=== PATIENT | female | born 1945 | race Caucasian/White ===

== ENCOUNTER 2020-01-07 16:37 | Emergency (ER) | payer MEDICARE, OTHER ==
[2020-01-07] MEDS ORDERED: amLODIPine 5 MG Tab PO ONE (17:09)
--- NOTE | 2020-01-07 17:11 | EDM.PDOC ---
ED HPI GENERAL MEDICAL PROBLEM - General Chief Complaint: General Stated Complaint: WEAK,HIGH BP Time Seen by Provider: 01/07/20 16:55 Source of Information: Reports: Patient, Old Records, RN History Limitations: Reports: No Limitations - History of Present Illness INITIAL COMMENTS - FREE TEXT/NARRATIVE: 74 yo female on multiple medications for HTN decided on her own to stop most of them about a month ago. She never checked her BP after this until today in the clinic. When they discovered her BP was over 200 they referred her to the ER. She denies feeling any different than usual except that her says she has no ambition for about a week. 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: Other (see below) (none) Headache Pain Score (Numeric/FACES): 3 - Related Data Allergies Allergy/AdvReac Type Severity Reaction Status Date / Time hydrochlorothiazide Allergy Cannot Verified 03/16/18 23:43 Remember sulfadiazine [Sulfadiazine] Allergy Hives Verified 03/16/18 23:43 amoxicillin [Amoxicillin] AdvReac Nausea Verified 03/16/18 23:43 cephalexin [Cephalexin] AdvReac Nausea Verified 03/16/18 23:43 ciprofloxacin AdvReac Nausea Verified 03/16/18 23:43 ketorolac AdvReac Stomach Verified 03/16/18 23:43 Upset levofloxacin [From Levaquin] AdvReac Nausea Verified 03/16/18 23:43 lorazepam [From Ativan] AdvReac Nausea Verified 03/16/18 23:43 metronidazole AdvReac Nausea Verified 03/16/18 23:43 Penicillins AdvReac Fainting Verified 03/16/18 23:43 Home Meds: Home Meds Acetaminophen [Mapap] 500 mg PO Q6H PRN 10/09/13 [History] Fluticasone Propionate [Flonase] 2 sprays NS DAILY 10/09/13 [History] Levothyroxine [Sythroid] 137 mcg PO DAILY 10/09/13 [History] Metoprolol Succinate [Toprol XL 100mg] 100 mg PO DAILY 10/09/13 [History] Multivitamin [Multi Vitamin Daily] 1 each PO DAILY 10/09/13 [History] Temazepam [Restoril] 15 mg PO BEDTIME PRN 10/09/13 [History] fentaNYL [Duragesic] 1 patch TD Q72H 10/09/13 [History] traMADol [Ultram] 50 mg PO Q6H PRN 10/09/13 [History] Torsemide 10 mg PO DAILY 01/11/18 [History] amLODIPine Besylate [Amlodipine Besylate] 10 mg PO BID 01/11/18 [History] atorvaSTATin [Lipitor] 10 mg PO DAILY 01/11/18 [History] tiZANidine [Zanaflex] 4 mg PO BEDTIME PRN 01/11/18 [History] Calcium Carbonate/Vitamin D3 [Calcium 500-Vit D3 600 Tablet] 1 tab PO BID 03/16/18 [History] Losartan Potassium 25 mg PO DAILY 05/08/19 [History] Past Medical History HEENT History: Reports: Cataract Cardiovascular History: Reports: High Cholesterol, Hypertension Genitourinary History: Reports: Chronic Renal Insuffiency, Renal Disease Other Genitourinary History: kidneys not functioniong well 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: Musculoskeletal History: Reports: Arthritis Neurological History: Reports: Other (See Below) Other Neuro History: spinal scoliosis Endocrine/Metabolic History: Reports: Hypothyroidism - Infectious Disease History Infectious Disease History: Reports: Chicken Pox, Measles, Mumps - Past Surgical History HEENT Surgical History: Reports: Cataract Surgery, LASIK GI Surgical History: Reports: Cholecystectomy, Colonoscopy Female Surgical History: Reports: Tubal Ligation Endocrine Surgical History: Reports: Thyroidectomy Musculoskeletal Surgical History: Reports: Knee Replacement Social & Family History - Family History Family Medical History: Noncontributory - Tobacco Use Smoking Status *Q: Never Smoker - Caffeine Use Caffeine Use: Reports: None Caffeine Use Comment: very rarely - Recreational Drug Use Recreational Drug Use: No ED ROS GENERAL - Review of Systems Review Of Systems: See Below Constitutional: Reports: No Symptoms HEENT: Reports: No Symptoms Respiratory: Reports: No Symptoms Endocrine: Reports: No Symptoms GI/Abdominal: Reports: No Symptoms : Reports: No Symptoms Musculoskeletal: Reports: Back Pain (chronic) Skin: Reports: No Symptoms Neurological: Reports: Headache (mild, chronic) ED EXAM, GENERAL - Physical Exam Exam: See Below Exam Limited By: No Limitations General Appearance: Alert, WD/WN, No Apparent Distress Eye Exam: Bilateral Eye: Normal Inspection Ears: Normal External Exam, Normal Canal, Hearing Grossly Normal, Normal TMs Ear Exam: Bilateral Ear: Auricle Normal, Canal Normal, TM normal Nose: Normal Inspection, No Blood Throat/Mouth: Normal Inspection Head: Atraumatic, Normocephalic Neck: Normal Inspection Respiratory/Chest: No Respiratory Distress, Lungs Clear, Normal Breath Sounds, No Accessory Muscle Use Cardiovascular: Regular Rate, Rhythm, No Edema GI/Abdominal: Normal Bowel Sounds, Soft, Non-Tender, No Distention Back Exam: Normal Inspection. No: CVA Tenderness (R), CVA Tenderness (L) Extremities: Normal Inspection, Normal Range of Motion, Non-Tender, No Pedal Edema Neurological: Alert, Oriented, CN II-XII Intact, Normal Cognition, Normal Reflexes, No Motor/Sensory Deficits Psychiatric: Normal Affect, Normal Mood Skin Exam: Warm, Dry, Intact, Normal Color, No Rash Course - Vital Signs Last Recorded V/S: Last Vital Signs Temp 36.6 C 01/07/20 16:52 Pulse 72 01/07/20 16:52 Resp 16 01/07/20 16:52 BP 228/102 H 01/07/20 16:52 Pulse Ox 97 01/07/20 16:52 - Orders/Labs/Meds Labs: Laboratory Tests 01/07/20 Range/Units 16:40 Sodium 141 (140-148) mmol/L Potassium 3.8 (3.6-5.2) mmol/L Chloride 103 (100-108) mmol/L Carbon Dioxide 30 (21-32) mmol/L Anion Gap 8.5 (5.0-14.0) mmol/L BUN 23 H (7-18) mg/dL Creatinine 1.9 H (0.6-1.0) mg/dL Est Cr Clr Drug Dosing 21.75 mL/min Estimated GFR (MDRD) 26 L (>60) Glucose 84 (74-106) mg/dL Calcium 9.5 (8.5-10.1) mg/dL Meds: Medications Discontinued Medications Generic Name Dose Route Start Last Admin Trade Name Freq PRN Reason Stop Dose Admin Amlodipine Besylate 10 mg 01/07/20 17:09 Norvasc PO 01/07/20 17:10 ONETIME ONE Departure - Departure Time of Disposition: 17:35 Disposition: Home, Self-Care 01 Condition: Fair Clinical Impression: Noncompliance with medication regimen HTN (hypertension) Qualifiers: Hypertension type: unspecified Qualified Code(s): I10 - Essential (primary) hypertension - Discharge Information *PRESCRIPTION DRUG MONITORING PROGRAM REVIEWED*: Not Applicable *COPY OF PRESCRIPTION DRUG MONITORING REPORT IN PATIENT BENNY: Not Applicable Referrals: Luis Valdes MD [Primary Care Provider] - Forms: ED Department Discharge Additional Instructions: Resume your medications as previously prescribed. Take your next dose of am lodipine in the morning tomorrow. If you find you are out of any of your BP meds then call your provider in the morning for refills. Recheck in the clinic within the week. Return here for shortness of breath, chest pain, stroke symptoms(unilateral numbness or weakness), worsening headache, or syncope. Avoid salt or salty foods. Avoid vigorous exercise until your BP is improving, you may go for walks at a nice slow pace. Sepsis Event Note (ED) - Focused Exam Vital Signs: Vital Signs Temp Pulse Resp BP Pulse Ox 01/07/20 16:52 36.6 C 72 16 228/102 H 97
== END 2020-01-07 17:51 | disposition home or self-care (01) ==
LOC: JP.ED 16:37
DX: I12.9 Hypertensive chronic kidney disease with stage 1 through stage 4 chronic kidney disease, or unspecified chronic kidney disease (principal); N18.9 Chronic kidney disease, unspecified; E78.00 Pure hypercholesterolemia, unspecified; E03.9 Hypothyroidism, unspecified; M19.90 Unspecified osteoarthritis, unspecified site; Z88.8 Allergy status to other drugs, medicaments and biological substances; Z79.899 Other long term (current) drug therapy; Z90.89 Acquired absence of other organs
CPT/HCPCS: 36415; 80048; 99283; A9270

== ENCOUNTER 2021-04-08 05:58 | Inpatient (IN) | payer MEDICARE, OTHER ==
[2021-04-08] MEDS ORDERED: Levothyroxine 112 MCG Tab PO ONE (06:54)
[2021-04-08 07:01] LABS: CORONAVIRUS COVID-19 NAA POSITIVE (NEGATIVE)
[2021-04-08] MEDS ORDERED: Dexamethasone 4 MG/ML SDV IVPUSH ONE (09:32)
[2021-04-08] MEDS ORDERED: Ondansetron 4 MG Tab.DIS PO PRN (10:07)
[2021-04-08] MEDS ORDERED: Ondansetron 4 MG/2 ML SDV IV PRN (10:07)
[2021-04-08] MEDS: Enoxaparin 30 MG/0.3 ML Syringe SUBCUT SCH (13:13)
[2021-04-08] MEDS: Melatonin 3 MG Tab PO SCH (22:31)
[2021-04-09] MEDS ORDERED: Levothyroxine 100 MCG Tab PO SCH (07:30)
[2021-04-09] MEDS: Dexamethasone 4 MG/ML SDV IVPUSH SCH (11:31)
[2021-04-09] MEDS: Potassium Chloride 20 MEQ Tab.ER PO SCH ×2 (11:31→20:25)
[2021-04-09] MEDS: Enoxaparin 30 MG/0.3 ML Syringe SUBCUT SCH (11:32)
[2021-04-09] MEDS: LORazepam 0.5 MG Tab PO PRN ×2 (18:23→23:51)
[2021-04-09] MEDS: Melatonin 3 MG Tab PO SCH (20:29)
[2021-04-09] MEDS: Haloperidol Lactate 5 MG/ML SDV IVPUSH PRN (22:28)
[2021-04-10] MEDS: LORazepam 0.5 MG Tab PO PRN ×2 (11:18→23:25)
[2021-04-10] MEDS: Dexamethasone 4 MG/ML SDV IVPUSH SCH (11:18)
[2021-04-10] MEDS: Enoxaparin 30 MG/0.3 ML Syringe SUBCUT SCH (11:18)
[2021-04-10] MEDS: Acetaminophen 325 MG Tab PO PRN ×2 (11:18→23:25)
[2021-04-10] MEDS: guaiFENesin/Dextromethorphan 100-10 MG/5 ML Soln 10 ML Cup PO PRN (11:19)
[2021-04-10] MEDS: Melatonin 3 MG Tab PO SCH (20:26)
[2021-04-10] MEDS: Haloperidol Lactate 5 MG/ML SDV IVPUSH PRN (22:42)
[2021-04-11] MEDS: LORazepam 0.5 MG Tab PO PRN ×3 (03:23→23:22)
[2021-04-11] MEDS: Acetaminophen 325 MG Tab PO PRN (03:24)
[2021-04-11] MEDS: Enoxaparin 30 MG/0.3 ML Syringe SUBCUT SCH (10:51)
[2021-04-11] MEDS: Dexamethasone 2 MG Tab PO SCH (10:51)
[2021-04-11] MEDS: Haloperidol 5 MG Tab PO PRN ×2 (19:58→23:22)
[2021-04-11] MEDS: Melatonin 3 MG Tab PO SCH ×2 (19:58→20:09)
[2021-04-11] MEDS: Benzonatate 100 MG Cap PO PRN (22:28)
[2021-04-12] MEDS: Dexamethasone 2 MG Tab PO SCH (08:32)
[2021-04-12] MEDS: Enoxaparin 30 MG/0.3 ML Syringe SUBCUT SCH (12:06)
[2021-04-12] MEDS: Melatonin 3 MG Tab PO SCH (20:04)
[2021-04-12] MEDS: LORazepam 0.5 MG Tab PO PRN (20:04)
[2021-04-12] MEDS: Acetaminophen 325 MG Tab PO PRN (21:27)
[2021-04-12] MEDS ORDERED: LORazepam 1 MG Tab PO ONE (22:09)
[2021-04-12] MEDS: Haloperidol 5 MG Tab PO PRN (22:14)
[2021-04-13] MEDS: guaiFENesin/Dextromethorphan 100-10 MG/5 ML Soln 10 ML Cup PO PRN (04:59)
[2021-04-13] MEDS: LORazepam 0.5 MG Tab PO PRN ×2 (06:34→20:03)
[2021-04-13] MEDS: Dexamethasone 2 MG Tab PO SCH (08:12)
[2021-04-13] MEDS: Enoxaparin 30 MG/0.3 ML Syringe SUBCUT SCH (11:29)
[2021-04-13] MEDS: Divalproex Sodium Delayed-Release 250 MG Tab.CR PO SCH (16:16)
[2021-04-13] MEDS: Haloperidol 5 MG Tab PO PRN ×2 (16:16→22:07)
[2021-04-13] MEDS: Magnesium Hydroxide 400 MG/5 ML Susp 30 ML Cup PO PRN (18:00)
[2021-04-13] MEDS: Acetaminophen 325 MG Tab PO PRN (20:03)
[2021-04-13] MEDS: Benzonatate 100 MG Cap PO PRN (20:03)
[2021-04-13] MEDS: Melatonin 3 MG Tab PO SCH (20:23)
[2021-04-14] MEDS: LORazepam 0.5 MG Tab PO PRN (00:31)
[2021-04-14] MEDS: Divalproex Sodium Delayed-Release 250 MG Tab.CR PO SCH ×2 (07:24→17:08)
[2021-04-14] MEDS: Dexamethasone 2 MG Tab PO SCH (09:28)
[2021-04-14] MEDS: Enoxaparin 30 MG/0.3 ML Syringe SUBCUT SCH (11:28)
[2021-04-14] MEDS: Acetaminophen 325 MG Tab PO PRN (17:52)
[2021-04-14] MEDS: Melatonin 3 MG Tab PO SCH (20:09)
[2021-04-14] MEDS: Magnesium Hydroxide 400 MG/5 ML Susp 30 ML Cup PO PRN (22:14)
[2021-04-15] MEDS: Divalproex Sodium Delayed-Release 250 MG Tab.CR PO SCH ×2 (07:33→16:37)
[2021-04-15] MEDS: Dexamethasone 2 MG Tab PO SCH (09:50)
[2021-04-15] MEDS: Acetaminophen 325 MG Tab PO PRN (09:51)
[2021-04-15] MEDS: Enoxaparin 30 MG/0.3 ML Syringe SUBCUT SCH (11:21)
[2021-04-15] MEDS: Magnesium Hydroxide 400 MG/5 ML Susp 30 ML Cup PO PRN (16:37)
[2021-04-15] MEDS: Melatonin 3 MG Tab PO SCH (22:41)
[2021-04-16] MEDS: Divalproex Sodium Delayed-Release 250 MG Tab.CR PO SCH ×2 (11:00→16:00)
[2021-04-16] MEDS: Dexamethasone 2 MG Tab PO SCH (11:01)
[2021-04-16] MEDS ORDERED: Furosemide 40 MG/4 ML VIAL IVPUSH ONE (12:30)
[2021-04-16] MEDS ORDERED: Meropenem 1 GM in Sodium Chloride 0.9% 100 ML IV SCH (12:30)
[2021-04-16] MEDS ORDERED: Vancomycin 1 GM SDV IV SCH (13:00)
[2021-04-16] MEDS: Enoxaparin 30 MG/0.3 ML Syringe SUBCUT SCH (13:50)
[2021-04-16] MEDS: Haloperidol 5 MG Tab PO PRN (16:00)
[2021-04-16] MEDS: LORazepam 0.5 MG Tab PO PRN (17:50)
[2021-04-17] MEDS: Haloperidol 5 MG Tab PO PRN ×8 (00:56→21:30)
[2021-04-17] MEDS: Melatonin 3 MG Tab PO SCH ×2 (02:24→21:30)
[2021-04-17] MEDS: Meropenem 500 MG in Sodium Chloride 0.9% 50 ML IV SCH ×2 (02:25→13:00)
[2021-04-17] MEDS: Dexamethasone 2 MG Tab PO SCH (08:05)
[2021-04-17] MEDS: Divalproex Sodium Delayed-Release 250 MG Tab.CR PO SCH ×2 (08:05→17:53)
[2021-04-17] MEDS: Enoxaparin 30 MG/0.3 ML Syringe SUBCUT SCH (12:14)
[2021-04-17] MEDS ORDERED: Vancomycin 1.2 GM in Sodium Chloride 0.9% 250 ML IV SCH (13:30)
[2021-04-17] MEDS: Vancomycin 1.2 GM in Sodium Chloride 0.9% 250 ML IV SCH (14:29)
[2021-04-17] MEDS: Sodium Chloride 0.65% Nasal Spray 45 ML Bottle NAS PRN (18:30)
[2021-04-18] MEDS: Haloperidol 5 MG Tab PO PRN ×3 (00:07→09:45)
[2021-04-18] MEDS: Meropenem 500 MG in Sodium Chloride 0.9% 50 ML IV SCH ×2 (02:32→14:51)
[2021-04-18] MEDS: Divalproex Sodium Delayed-Release 250 MG Tab.CR PO SCH ×2 (08:49→17:49)
[2021-04-18] MEDS: Dexamethasone 2 MG Tab PO SCH (08:49)
[2021-04-18] MEDS: Sodium Chloride 0.65% Nasal Spray 45 ML Bottle NAS PRN (09:46)
[2021-04-18] MEDS: Enoxaparin 30 MG/0.3 ML Syringe SUBCUT SCH (11:28)
[2021-04-18] MEDS: Vancomycin 1.2 GM in Sodium Chloride 0.9% 250 ML IV SCH (15:38)
[2021-04-18] MEDS: Melatonin 3 MG Tab PO SCH (21:39)
[2021-04-19] MEDS: Meropenem 500 MG in Sodium Chloride 0.9% 50 ML IV SCH ×2 (02:49→15:35)
[2021-04-19] MEDS: Divalproex Sodium Delayed-Release 250 MG Tab.CR PO SCH ×2 (09:14→16:12)
[2021-04-19] MEDS: Dexamethasone 2 MG Tab PO SCH (09:17)
[2021-04-19] MEDS: Enoxaparin 30 MG/0.3 ML Syringe SUBCUT SCH (10:36)
[2021-04-19] MEDS: Haloperidol 5 MG Tab PO PRN (18:41)
[2021-04-19] MEDS: Melatonin 3 MG Tab PO SCH (20:10)
[2021-04-20] MEDS: Meropenem 500 MG in Sodium Chloride 0.9% 50 ML IV SCH ×2 (01:16→15:19)
[2021-04-20] MEDS: Haloperidol 5 MG Tab PO PRN ×2 (02:42→21:49)
[2021-04-20] MEDS: Divalproex Sodium Delayed-Release 250 MG Tab.CR PO SCH ×2 (09:54→17:15)
[2021-04-20] MEDS: Dexamethasone 2 MG Tab PO SCH (09:55)
[2021-04-20] MEDS: Enoxaparin 30 MG/0.3 ML Syringe SUBCUT SCH (10:30)
[2021-04-20] MEDS: Magnesium Hydroxide 400 MG/5 ML Susp 30 ML Cup PO PRN (18:41)
[2021-04-20] MEDS: Melatonin 3 MG Tab PO SCH (21:13)
[2021-04-20] MEDS: LORazepam 0.5 MG Tab PO PRN (23:42)
[2021-04-21] MEDS: Meropenem 500 MG in Sodium Chloride 0.9% 50 ML IV SCH ×2 (02:02→14:14)
[2021-04-21] MEDS: Dexamethasone 2 MG Tab PO SCH (08:53)
[2021-04-21] MEDS: Divalproex Sodium Delayed-Release 250 MG Tab.CR PO SCH (08:54)
[2021-04-21] MEDS: Enoxaparin 30 MG/0.3 ML Syringe SUBCUT SCH (12:32)
[2021-04-21] MEDS: Magnesium Hydroxide 400 MG/5 ML Susp 30 ML Cup PO PRN (14:14)
[2021-04-21] MEDS: Divalproex Sodium Delayed-Release 125 MG Cap.Sprink PO SCH (17:43)
[2021-04-21] MEDS: Melatonin 3 MG Tab PO SCH (20:18)
[2021-04-21] MEDS: LORazepam 0.5 MG Tab PO PRN (20:23)
[2021-04-21] MEDS: Haloperidol 5 MG Tab PO PRN (20:36)
[2021-04-22] MEDS: Dexamethasone 2 MG Tab PO SCH (09:18)
[2021-04-22] MEDS: Divalproex Sodium Delayed-Release 125 MG Cap.Sprink PO SCH ×2 (09:18→17:17)
[2021-04-22] MEDS: Enoxaparin 30 MG/0.3 ML Syringe SUBCUT SCH (14:15)
[2021-04-22] MEDS: Magnesium Hydroxide 400 MG/5 ML Susp 30 ML Cup PO PRN (14:15)
[2021-04-22] MEDS: LORazepam 0.5 MG Tab PO PRN (18:06)
[2021-04-22] MEDS: Melatonin 3 MG Tab PO SCH (20:27)
[2021-04-23] MEDS: Acetaminophen 325 MG Tab PO PRN (03:01)
[2021-04-23] MEDS: Divalproex Sodium Delayed-Release 125 MG Cap.Sprink PO SCH ×2 (08:11→17:00)
[2021-04-23] MEDS: Dexamethasone 2 MG Tab PO SCH (08:14)
[2021-04-23] MEDS: Enoxaparin 30 MG/0.3 ML Syringe SUBCUT SCH (11:06)
[2021-04-23] MEDS: LORazepam 0.5 MG Tab PO PRN (16:28)
[2021-04-23] MEDS: Haloperidol 5 MG Tab PO PRN (18:22)
[2021-04-23] MEDS: Melatonin 3 MG Tab PO SCH ×2 (20:02→20:05)
[2021-04-24] MEDS: Dexamethasone 2 MG Tab PO SCH (08:55)
[2021-04-24] MEDS: Divalproex Sodium Delayed-Release 125 MG Cap.Sprink PO SCH ×2 (08:55→17:39)
[2021-04-24] MEDS: Acetaminophen 325 MG Tab PO PRN ×2 (09:02→14:15)
[2021-04-24] MEDS: Enoxaparin 30 MG/0.3 ML Syringe SUBCUT SCH (12:25)
[2021-04-24] MEDS: Haloperidol 5 MG Tab PO PRN (17:49)
[2021-04-24] MEDS: LORazepam 0.5 MG Tab PO PRN (19:11)
[2021-04-24] MEDS ORDERED: LORazepam 1 MG Tab PO ONE (20:01)
[2021-04-24] MEDS: Melatonin 3 MG Tab PO SCH (20:22)
[2021-04-25] MEDS: Divalproex Sodium Delayed-Release 125 MG Cap.Sprink PO SCH ×3 (09:39→18:45)
[2021-04-25] MEDS ORDERED: LORazepam 0.5 MG Tab PO PRN (11:48)
[2021-04-25] MEDS: Enoxaparin 30 MG/0.3 ML Syringe SUBCUT SCH (12:17)
[2021-04-25] MEDS: Acetaminophen 325 MG Tab PO PRN (12:17)
[2021-04-25] MEDS: Haloperidol 5 MG Tab PO PRN ×3 (12:17→22:27)
[2021-04-25] MEDS: Dexamethasone 2 MG Tab PO SCH (12:18)
[2021-04-25] MEDS: LORazepam 0.5 MG Tab PO PRN (20:13)
[2021-04-25] MEDS: Melatonin 3 MG Tab PO SCH (20:14)
[2021-04-26] MEDS: Haloperidol 5 MG Tab PO PRN ×2 (02:43→12:48)
[2021-04-26] MEDS: LORazepam 0.5 MG Tab PO PRN (02:43)
[2021-04-26] MEDS: Divalproex Sodium Delayed-Release 125 MG Cap.Sprink PO SCH ×2 (08:06→16:41)
[2021-04-26] MEDS: Dexamethasone 2 MG Tab PO SCH (09:26)
[2021-04-26] MEDS: Enoxaparin 30 MG/0.3 ML Syringe SUBCUT SCH (11:08)
[2021-04-26] MEDS: Acetaminophen 325 MG Tab PO PRN (12:47)
[2021-04-26] MEDS ORDERED: Sodium Phosphate,Monobasic/Sodium Phosphate,Dibasic Enema 133 ML Bottle RECTAL PRN (13:50)
[2021-04-26] MEDS ORDERED: Bisacodyl 10 MG Supp RECTAL ONE ×2 (13:50→17:00)
[2021-04-26] MEDS: Magnesium Hydroxide 400 MG/5 ML Susp 30 ML Cup PO PRN (17:43)
[2021-04-26] MEDS: Melatonin 3 MG Tab PO SCH (22:11)
[2021-04-27] MEDS: Magnesium Hydroxide 400 MG/5 ML Susp 30 ML Cup PO PRN (08:27)
[2021-04-27] MEDS: Divalproex Sodium Delayed-Release 125 MG Cap.Sprink PO SCH ×2 (08:27→17:17)
[2021-04-27] MEDS: Dexamethasone 2 MG Tab PO SCH (08:28)
[2021-04-27] MEDS: Losartan 50 MG Tab PO SCH ×2 (08:30→20:53)
[2021-04-27] MEDS: Enoxaparin 30 MG/0.3 ML Syringe SUBCUT SCH (11:41)
[2021-04-27] MEDS ORDERED: Divalproex Sodium Delayed-Release 125 MG Cap.Sprink PO ONE (12:00)
[2021-04-27] MEDS ORDERED: Polyethylene Glycol 3350 Powder 17 GM Packet PO ONE (12:01)
[2021-04-27] MEDS: Magnesium Hydroxide 400 MG/5 ML Susp 30 ML Cup PO SCH ×2 (13:06→20:54)
[2021-04-27] MEDS: Melatonin 3 MG Tab PO SCH (20:54)
[2021-04-28] MEDS: Losartan 50 MG Tab PO SCH ×2 (08:32→20:46)
[2021-04-28] MEDS: Magnesium Hydroxide 400 MG/5 ML Susp 30 ML Cup PO SCH ×3 (08:33→20:48)
[2021-04-28] MEDS: Divalproex Sodium Delayed-Release 125 MG Cap.Sprink PO SCH ×2 (08:33→17:45)
[2021-04-28] MEDS: Enoxaparin 30 MG/0.3 ML Syringe SUBCUT SCH (12:59)
[2021-04-28] MEDS: Melatonin 3 MG Tab PO SCH (20:47)
[2021-04-28] MEDS: Acetaminophen 325 MG Tab PO PRN (20:56)
[2021-04-29] MEDS: Acetaminophen 325 MG Tab PO PRN (01:44)
[2021-04-29] MEDS: Divalproex Sodium Delayed-Release 125 MG Cap.Sprink PO SCH ×2 (07:17→16:53)
[2021-04-29] MEDS: Magnesium Hydroxide 400 MG/5 ML Susp 30 ML Cup PO SCH ×2 (09:31→21:39)
[2021-04-29] MEDS: Losartan 50 MG Tab PO SCH (09:31)
[2021-04-29] MEDS: Enoxaparin 30 MG/0.3 ML Syringe SUBCUT SCH (11:14)
[2021-04-29] MEDS: Melatonin 3 MG Tab PO SCH (21:39)
[2021-04-29] MEDS: Losartan 25 MG Tab PO SCH (21:39)
[2021-04-29] MEDS: diphenhydrAMINE 25 MG Cap PO PRN (21:40)
[2021-04-29] MEDS ORDERED: diphenhydrAMINE 25 MG Cap PO ONE (22:30)
[2021-04-30] MEDS: Divalproex Sodium Delayed-Release 125 MG Cap.Sprink PO SCH ×2 (08:11→16:08)
[2021-04-30] MEDS: Magnesium Hydroxide 400 MG/5 ML Susp 30 ML Cup PO SCH ×2 (08:20→21:41)
[2021-04-30] MEDS: Losartan 25 MG Tab PO SCH ×2 (08:20→21:41)
[2021-04-30] MEDS: Enoxaparin 30 MG/0.3 ML Syringe SUBCUT SCH (11:06)
[2021-04-30] MEDS: Melatonin 3 MG Tab PO SCH (21:41)
[2021-04-30] MEDS: diphenhydrAMINE 25 MG Cap PO PRN (21:42)
[2021-05-01] MEDS: Divalproex Sodium Delayed-Release 125 MG Cap.Sprink PO SCH ×2 (07:25→16:25)
[2021-05-01] MEDS: Acetaminophen 325 MG Tab PO PRN ×2 (07:31→12:25)
[2021-05-01] MEDS: Magnesium Hydroxide 400 MG/5 ML Susp 30 ML Cup PO SCH (11:57)
[2021-05-01] MEDS: Enoxaparin 30 MG/0.3 ML Syringe SUBCUT SCH (12:25)
[2021-05-01] MEDS: Losartan 25 MG Tab PO SCH ×2 (12:25→20:49)
[2021-05-01] MEDS: Melatonin 3 MG Tab PO SCH (20:50)
[2021-05-01] MEDS: diphenhydrAMINE 25 MG Cap PO PRN (22:00)
[2021-05-02] MEDS: Divalproex Sodium Delayed-Release 125 MG Cap.Sprink PO SCH ×2 (07:56→16:51)
[2021-05-02] MEDS: Acetaminophen 325 MG Tab PO PRN ×2 (07:58→22:19)
[2021-05-02] MEDS: Losartan 25 MG Tab PO SCH ×2 (08:44→20:32)
[2021-05-02] MEDS: Enoxaparin 30 MG/0.3 ML Syringe SUBCUT SCH (12:49)
[2021-05-02] MEDS: Melatonin 3 MG Tab PO SCH (20:32)
[2021-05-02] MEDS: diphenhydrAMINE 25 MG Cap PO PRN (22:20)
[2021-05-03] MEDS: Acetaminophen 325 MG Tab PO PRN ×2 (05:44→20:51)
[2021-05-03] MEDS: Divalproex Sodium Delayed-Release 125 MG Cap.Sprink PO SCH ×2 (08:36→16:57)
[2021-05-03] MEDS: Losartan 25 MG Tab PO SCH ×2 (09:02→20:36)
[2021-05-03] MEDS ORDERED: predniSONE 20 MG Tab PO ONE ×2 (10:00→12:45)
[2021-05-03] MEDS: Enoxaparin 30 MG/0.3 ML Syringe SUBCUT SCH (12:28)
[2021-05-03] MEDS: guaiFENesin/Dextromethorphan 100-10 MG/5 ML Soln 10 ML Cup PO PRN (13:41)
[2021-05-03] MEDS: Melatonin 3 MG Tab PO SCH (20:35)
[2021-05-03] MEDS: diphenhydrAMINE 25 MG Cap PO PRN (20:38)
[2021-05-04] MEDS: predniSONE 20 MG Tab PO SCH (08:15)
[2021-05-04] MEDS: Divalproex Sodium Delayed-Release 125 MG Cap.Sprink PO SCH ×2 (08:15→16:51)
[2021-05-04] MEDS: Losartan 25 MG Tab PO SCH ×2 (08:16→20:14)
[2021-05-04] MEDS: Enoxaparin 30 MG/0.3 ML Syringe SUBCUT SCH (10:48)
[2021-05-04] MEDS: diphenhydrAMINE 25 MG Cap PO PRN (19:40)
[2021-05-04] MEDS: Melatonin 3 MG Tab PO SCH (20:14)
[2021-05-04] MEDS ORDERED: traZODone 50 MG Tab PO SCH (21:00)
[2021-05-05] MEDS: Divalproex Sodium Delayed-Release 125 MG Cap.Sprink PO SCH (08:10)
[2021-05-05] MEDS: predniSONE 20 MG Tab PO SCH (08:11)
[2021-05-05] MEDS: Losartan 25 MG Tab PO SCH (08:12)
== END 2021-05-05 09:00 | DRG 177 ==
LOC: JP.ED 05:58 → JP.2SS 09:34 → JP.MS 04-23 14:50
PROVIDERS: ADMIT Internal Medicine; ATTEND Internal Medicine
PROC: 8E0ZXY6 Isolation (ICD-10-PCS; principal; 2021-04-08)
PROC: 3E0333Z Introduction of Anti-inflammatory into Peripheral Vein, Percutaneous Approach (ICD-10-PCS; 2021-04-08)
PROC: 3E0DX3Z Introduction of Anti-inflammatory into Mouth and Pharynx, External Approach (ICD-10-PCS; 2021-04-11)
PROC: XW0DXM6 Introduction of Baricitinib into Mouth and Pharynx, External Approach, New Technology Group 6 (ICD-10-PCS; 2021-04-16)
PROC: XW033N5 Introduction of Meropenem-vaborbactam Anti-infective into Peripheral Vein, Percutaneous Approach, New Technology Group 5 (ICD-10-PCS; 2021-04-16)
DX: U07.1 COVID-19 (principal); R41.0 Disorientation, unspecified; R29.6 Repeated falls; J12.82 Pneumonia due to coronavirus disease 2019; J96.01 Acute respiratory failure with hypoxia; F03.90 Unspecified dementia, unspecified severity, without behavioral disturbance, psychotic disturbance, mood disturbance, and anxiety; N17.9 Acute kidney failure, unspecified; I31.9 Disease of pericardium, unspecified; N18.4 Chronic kidney disease, stage 4 (severe); E03.9 Hypothyroidism, unspecified; G30.1 Alzheimer's disease with late onset; F02.80 Dementia in other diseases classified elsewhere, unspecified severity, without behavioral disturbance, psychotic disturbance, mood disturbance, and anxiety; Z66 Do not resuscitate; M41.9 Scoliosis, unspecified; E78.00 Pure hypercholesterolemia, unspecified; I12.9 Hypertensive chronic kidney disease with stage 1 through stage 4 chronic kidney disease, or unspecified chronic kidney disease; M19.90 Unspecified osteoarthritis, unspecified site; Z88.8 Allergy status to other drugs, medicaments and biological substances; Z96.659 Presence of unspecified artificial knee joint; M79.7 Fibromyalgia; M54.50 Low back pain, unspecified; G89.29 Other chronic pain; K59.00 Constipation, unspecified; K21.9 Gastro-esophageal reflux disease without esophagitis; Z91.14 Patient's other noncompliance with medication regimen; Z88.2 Allergy status to sulfonamides; Z88.0 Allergy status to penicillin; Z88.1 Allergy status to other antibiotic agents; Z79.890 Hormone replacement therapy; Z79.899 Other long term (current) drug therapy; Z98.51 Tubal ligation status
CPT/HCPCS: 0241U; 36415; 36600; 70450; 71045; 71045-26; 80048; 80053; 81001; 82140; 82728; 82803; 83605; 83615; 83880; 84145; 84439; 84443; 84484; 85025; 85027; 85379; 86140; 87040; 93306; 97110-GO; 97110-GP; 97161-GP; 97165-GO; 97530-GP; 99285; 99285-25; A9270-GY; J1100; J1630; J1650; J1940; J2185; J3370; J7050; J7512; J8540